=== PATIENT | female | born 1985 | race Caucasian/White ===

== ENCOUNTER → 2016-12-12 | Outpatient (CLI) | payer OTHER | LOC: BMCIMAGING 14:48 | PROVIDERS: ATTEND Emergency Medicine | DX: M25.571 Pain in right ankle and joints of right foot (principal); M79.89 Other specified soft tissue disorders ==

== ENCOUNTER → 2017-03-06 | Outpatient (CLI) | payer OTHER | LOC: FLAB 13:35 | PROVIDERS: ATTEND Obstetrics & Gynecology | DX: Z34.01 Encounter for supervision of normal first pregnancy, first trimester (principal); Z3A.12 12 weeks gestation of pregnancy ==

== ENCOUNTER → 2017-04-27 | Outpatient (CLI) | payer OTHER | LOC: FIMAGING 07:45 | PROVIDERS: ATTEND Obstetrics & Gynecology | DX: Z34.02 Encounter for supervision of normal first pregnancy, second trimester (principal); Z3A.19 19 weeks gestation of pregnancy ==

== ENCOUNTER 2017-09-23 13:10 | Inpatient (IN) | payer OTHER ==
[2017-09-23] MEDS ORDERED: OLIVE OIL 118 ML BTL MISC PRN (14:35)
[2017-09-23] MEDS ORDERED: OXYTOCIN 20 UNIT in LR 1,000 ML IV PRN (14:35)
[2017-09-23] MEDS ORDERED: LR 1,000 ML IV PRN (14:35)
[2017-09-23] MEDS ORDERED: EPSOM SALT 454 GM TP PRN (14:35)
[2017-09-23] MEDS ORDERED: TERBUTALINE SULFATE 1 MG/ML VIAL IV PRN (14:35)
--- NOTE | 2017-09-23 15:14 | PDGENHP ---
History and Physical History and Physical: HPI: Patient is a 32yo with IUP@ 40-5wks (by ) that presents to L&D with complaints of decreased movement x 2 days. She denies any regular contractions, LOF, VB. She denies any headaches, visual changes, epigastric pain. She reports minimal movement x2 days, which is abnormal for this . EDC: 09/18/17 which is based on LMP which is known and consistent with Ultrasound at 8 weeks. Her is complicated by: Rh Negative Review of Systems: Constitutional: Denies any fever, chills, or fatigue HEENT: denies any visual changes, difficulty swallowing, hearing loss Cardiovascular: Denies any chest pain, palpitations, leg swelling Respiratory: denies any cough, wheezing, or shortness of breathe GI: Denies any nausea, vomiting, diarrhea, constipation : denies any dysuria, urgency, frequency, vaginal bleeding Musculoskeletal: denies any muscle or bone pain Skin: denies any rashes Neuro: denies any headache, seizures, lightheadedness, dizziness, or loss of consciousness Psychiatric: denies any depression, anxiety, or SI/HI thoughts HISTORY: Previous OB history: G1 Past medical history: Rh Negative Past surgical history: none Medications: PNV, probiotic, rhogam Allergies (list reaction): NKDA LABS: Rh: B Negative ABS: Neg Rubella: Immune HbsAg: NR HIV: NR VDRL: NR 1hr: 105 GC: Neg Chlamydia: Neg Pap: Normal GBS: negative PHYSICAL EXAM: Constitutional: WN, A&Ox3 HEENT: normocephalic atraumatic, supple Heart: RRR, no murmur Chest: CTA-B Abdomen: Soft, nontender, gravid SVE: 1-2/50/-2 Extremities: trace edema, negative homans sign Neuro: grossly normal Psych: normal affect assessment: Reassuring FHTs, baseline 120 +accels, no decels, moderate variability Contractions: toco q 3-4min Assessment: [id number] with IUP@40-5wks 2) IOL 2/2 decreased FM 3) GBS Negative 4) Cat 1 FHR tracing 5) Rh Negative Plan: 1) Admit to L&D 2) leung bulb placed 3) expectant management at this time/IA ok until pitocin started 4) will consider pitocin if no contractions 5) pain management PRN 6) anticipate
[2017-09-23 15:41] LABS: PLATELET COUNT 186 10^3/uL (150-400)
[2017-09-23] MEDS ORDERED: LIDOCAINE 1% 300 MG/30 ML SDV ONE (15:42)
[2017-09-23] MEDS ORDERED: OLIVE OIL 118 ML BTL ONE (15:42)
[2017-09-23] MEDS ORDERED: OXYTOCIN 10 UNIT/ML VIAL ONE (15:43)
[2017-09-23] MEDS ORDERED: TERBUTALINE SULFATE 1 MG/ML VIAL ONE (15:43)
[2017-09-23] MEDS ORDERED: AMMONIA AROMATIC 1 EACH AMP IH ONE (15:43)
[2017-09-23] MEDS ORDERED: MISOPROSTOL 200 MCG TAB ONE (15:44)
[2017-09-23] MEDS ORDERED: CEPACOL LOZENGE PO PRN (16:04)
[2017-09-23] MEDS ORDERED: LR 500 ML IV PRN (20:42)
[2017-09-23] MEDS ORDERED: OXYTOCIN 30 UNIT in NS 500 ML IV SCH (20:45)
--- NOTE | 2017-09-24 07:23 | OBPROG ---
Labor Progress Note Assessment/Plan: Assessment: [id number] with IUP@ 40-6wks IOL 2/2 decreased FM pitocin started GBS Negative Rh Negative Plan: cont pitocin reassess 2hr/PRN pain management PRN AROM PRN anticipate 09/24/17 07:29 09/24/17 07:30 Subjective/Intrapartum Course: 09/24/17 07:27 Pt doing well, she reports sleeping throughout the night. She denies any pain with contractions. She denies any LOF. Reports bloody show. FOB @ BS, supportive. Objective: 09/23/17 15:20 Patient ABO/Rh B NEGATIVE 09/23/17 15:20 - SVE Dilation (cm): 3 Effacement (%): 50 Station: -2 - Contraction Pattern Assessment Current Contraction Pattern: Irregular Oxytocin Orders Assessment - Pre-Induction/Augmentation Assessment Gestational Age: 40 week(s) and 5 day(s) ICD10 Worksheet Patient Problems: Problems Problem Status Onset Decreased movement Acute Encounter for induction of labor Acute - ICD10 Problem Qualifiers (1) Decreased movement (2) Encounter for induction of labor
--- NOTE | 2017-09-24 09:29 | OBPROG ---
Labor Progress Note Assessment/Plan: Assessment: IUP at 40+ wks decreased mvmt - induction with leung yesterday - fell out early am, on pitocin now - disc AROM - pt agrees Plan: mec noted on AROM cont pitocin, nitrous and JAMIE when desired 09/24/17 09:25 Subjective/Intrapartum Course: 09/24/17 07:27 Pt doing well, she reports sleeping throughout the night. She denies any pain with contractions. She denies any LOF. Reports bloody show. FOB @ BS, supportive. 09/24/17 09:26 Pt starting to be aware of the ctxns, not bothersome. Disc AROM and pt ok with it to stimulate. Disc meconium - likely due to post-dates. on 10 pit Objective: 09/23/17 15:20 Patient ABO/Rh B NEGATIVE 09/23/17 15:20 - SVE Dilation (cm): 4 Effacement (%): 75 Station: -1 Membranes: AROM Amniotic Fluid Color: Thick Meconium - Contraction Pattern Assessment Current Contraction Pattern: Regular (q2-4 min on pitocin 10 mu/min), Irregular - FHR Assessment Gonzalez FHR (bpm): 120 FHR Pattern Variability: Moderate FHR Category: 1 - Procedures Non-surgical Procedures: Amniotomy Oxytocin Orders Assessment - Pre-Induction/Augmentation Assessment Gestational Age: 40 week(s) and 5 day(s) ICD10 Worksheet Patient Problems: Problems Problem Status Onset Decreased movement Acute Encounter for induction of labor Acute Meconium in amniotic fluid affecting management of mother Acute - ICD10 Problem Qualifiers (1) Meconium in amniotic fluid affecting management of mother
[2017-09-24 10:15] LABS: PLATELET COUNT 169 10^3/uL (150-400)
[2017-09-24] MEDS ORDERED: fentaNYL 100 MCG/2 ML INJ ONE (17:44)
[2017-09-24] MEDS ORDERED: BUPIVACAINE 0.25% 30 ML SDV ONE (17:44)
[2017-09-24] MEDS ORDERED: fentaNYL 2MCG/ML/BUP 0.1% RTU 100 ML BAG EP ONE (17:44)
[2017-09-24] MEDS ORDERED: PHENYLEPHRINE HCL 100 MCG/ML SYR IVP PRN (18:15)
--- NOTE | 2017-09-24 18:17 | PREANESOB ---
Obstetric Pre-Anesthesia Info - General Info : 1 Para: 0 KINDRA: 09/18/17 Gestational Age: 40 week(s) and 5 day(s) - Info Status: Full Term FHR Pattern: Reassuring - Labor Status Cervical Dilation per last OB SVE: 4 Station per last OB SVE: -1 Amniotic Fluid Color: Thick Meconium Pitocin: In Use Indications for Labor Analgesia: Pain Control Labor Epidural: Yes Anesthesia Allergies/Adverse Reactions: Allergy/AdvReac Type Severity Reaction Status Date / Time No Known Allergies Allergy Unverified 09/23/17 14:15 Home Medications: Medication Instructions Recorded L.acidoph,Paracasei, B.lactis 09/23/17 [Probiotic] Vit27&Calcium/Iron/FA 09/23/17 [] Visit Medications: Generic Name Dose Route Start Last Admin Trade Name Freq PRN Reason Stop Dose Admin Oxytocin 20 unit/ Lactated 1,002 mls @ 150 mls/hr 09/23/17 14:35 Ringer's IV PRN PRN Post- bleeding Lactated Ringer's 500 mls @ 500 mls/hr 09/23/17 20:42 Lr IV 09/24/17 20:42 PRN PRN Maternal Hypotension Oxytocin 30 unit/ Sodium 503 mls @ 0 mls/hr 09/23/17 20:45 09/24/17 06:35 Chloride IV 03/22/18 20:44 503 mls CONT AFIA Administration Protocol Per Protocol Ibuprofen 600 mg 09/23/17 14:35 Motrin PO 03/22/18 14:34 Q6HRS PRN post , inflammation Magnesium Sulfate 454 gm 09/23/17 14:35 Epsom Salt TP 03/22/18 14:34 Q1H PRN perineal discomfort [place] Oil 118 ml 09/23/17 14:35 Sweet Oil MISC 03/22/18 14:34 ONCE PRN perineal massage Terbutaline Sulfate 0.25 mg 09/23/17 14:35 Brethine IV 03/22/18 14:34 ONCE PRN Tachysystole Throat Lozenges 1 ea 09/23/17 16:04 Cepacol Lozenge PO 03/22/18 16:03 PRN PRN Sore Throat Discontinued Medications Generic Name Dose Route Start Last Admin Trade Name Freq PRN Reason Stop Dose Admin Ammonia (Aromatic Spirit) Confirm 09/23/17 15:43 Ammonia Aromatic Administered 09/23/17 15:44 Dose 1 each IH .STK-MED ONE Bupivacaine HCl Confirm 09/24/17 17:44 Sensorcaine 0.25% Sdv Administered 09/24/17 17:45 Dose 30 ml .ROUTE .STK-MED ONE Fentanyl Confirm 09/24/17 17:44 Sublimaze Administered 09/24/17 17:45 Dose 100 mcg .ROUTE .STK-MED ONE Fentanyl/Bupivacaine HCl Confirm 09/24/17 17:44 Fentanyl/Bupivacaine/Ns 2 Mcg/Ml 0.1% (Premix Administered 09/24/17 17:45 Dose 100 ml EP .STK-MED ONE Lactated Ringer's 1,000 mls @ 0 mls/hr 09/23/17 14:35 09/24/17 06:35 Lr IV 09/24/17 14:34 1,000 mls PRN PRN Administration SEE PROTOCOL CONDITIONS Protocol Per Protocol Lidocaine HCl Confirm 09/23/17 15:42 Lidocaine Hcl 1% Administered 09/23/17 15:43 Dose 300 mg .ROUTE .STK-MED ONE Misoprostol Confirm 09/23/17 15:44 Cytotec Administered 09/23/17 15:45 Dose 1,000 mcg .ROUTE .STK-MED ONE [place] Oil Confirm 09/23/17 15:42 Sweet Oil Administered 09/23/17 15:43 Dose 118 ml .ROUTE .STK-MED ONE Oxytocin Confirm 09/23/17 15:43 Pitocin Administered 09/23/17 15:44 Dose 40 unit .ROUTE .STK-MED ONE Terbutaline Sulfate Confirm 09/23/17 15:43 Brethine Administered 09/23/17 15:44 Dose 1 mg .ROUTE .STK-MED ONE - Vital Signs Height/Weight (Nursing): Height 162.56 cm Weight 77.111 kg Labs: 09/24/17 09:45 09/24/17 09:45 Patient ABO/Rh B NEGATIVE 09/23/17 15:20 Uric Acid 5.4 mg/dL (2.5-6.8) 09/24/17 09:45 Total Bilirubin 0.5 mg/dL (0.1-1.4) 09/24/17 09:45 Conjugated Bilirubin 0.2 mg/dL (0.0-0.5) 09/24/17 09:45 Unconjugated Bilirubin 0.3 mg/dL (0.0-1.1) 09/24/17 09:45 AST 23 IU/L (14-46) 09/24/17 09:45 ALT 26 IU/L (9-52) 09/24/17 09:45 Lactate Dehydrogenase 428 IU/L (313-618) 09/24/17 09:45
[2017-09-24] MEDS ORDERED: fentaNYL 2MCG/ML/BUP 0.1% RTU 100 ML EP SCH (18:30)
[2017-09-24] MEDS ORDERED: LR 500 ML IV SCH (18:30)
--- NOTE | 2017-09-24 19:59 | OBPROG ---
Labor Progress Note Assessment/Plan: Assessment: IUP at 40+ wks decreased mvmt - induction with leung yesterday - fell out early am, on pitocin now - rom - THICK MEC lack of cervical change - IUPC placed comf with JAMIE Plan: IUPC and cont to adjust pit 09/24/17 09:25 09/24/17 19:56 Subjective/Intrapartum Course: 09/24/17 07:27 Pt doing well, she reports sleeping throughout the night. She denies any pain with contractions. She denies any LOF. Reports bloody show. FOB @ BS, supportive. 09/24/17 09:26 Pt starting to be aware of the ctxns, not bothersome. Disc AROM and pt ok with it to stimulate. Disc meconium - likely due to post-dates. on 10 pit 09/24/17 19:57 Comf with JAMIE, on 16 pit for hours, unchanged cx 4/75/-1, IUPC placed easily - feels OA Objective: 09/24/17 09:45 09/24/17 09:45 Patient ABO/Rh B NEGATIVE 09/23/17 15:20 Uric Acid 5.4 mg/dL (2.5-6.8) 09/24/17 09:45 Total Bilirubin 0.5 mg/dL (0.1-1.4) 09/24/17 09:45 Conjugated Bilirubin 0.2 mg/dL (0.0-0.5) 09/24/17 09:45 Unconjugated Bilirubin 0.3 mg/dL (0.0-1.1) 09/24/17 09:45 AST 23 IU/L (14-46) 09/24/17 09:45 ALT 26 IU/L (9-52) 09/24/17 09:45 Lactate Dehydrogenase 428 IU/L (313-618) 09/24/17 09:45 - SVE Dilation (cm): 4 Effacement (%): 75 Station: -1 Membranes: AROM Amniotic Fluid Color: Thick Meconium - Contraction Pattern Assessment Current Contraction Pattern: Regular (on 16 mu/min, q2 min - IUPC placed) - FHR Assessment Gonzalez FHR (bpm): 140 FHR Pattern Variability: Moderate FHR Category: 1 - Procedures Non-surgical Procedures: Amniotomy Oxytocin Orders Assessment - Pre-Induction/Augmentation Assessment Gestational Age: 40 week(s) and 5 day(s) ICD10 Worksheet Patient Problems: Problems Problem Status Onset Decreased movement Acute Encounter for induction of labor Acute Meconium in amniotic fluid affecting management of mother Acute - ICD10 Problem Qualifiers (1) Meconium in amniotic fluid affecting management of mother
[2017-09-25] MEDS ORDERED: ACETAMINOPHEN 500 MG TAB PO ONE ×2 (02:14→09:46)
--- NOTE | 2017-09-25 05:05 | OBPROG ---
Labor Progress Note Assessment/Plan: Assessment: IUP at 40+ wks decreased mvmt - induction with leung yesterday - fell out early am, on pitocin now - rom - THICK MEC Has been 8 cm for hrs - current change to 9 cm often borderline pain with JAMIE Plan: cont to adjust pit due to high freq - often inadeq strength....on 22 - just dropped to 15 of pit and increasing again 09/24/17 09:25 09/24/17 19:56 09/25/17 05:01 Subjective/Intrapartum Course: 09/24/17 07:27 Pt doing well, she reports sleeping throughout the night. She denies any pain with contractions. She denies any LOF. Reports bloody show. FOB @ BS, supportive. 09/24/17 09:26 Pt starting to be aware of the ctxns, not bothersome. Disc AROM and pt ok with it to stimulate. Disc meconium - likely due to post-dates. on 10 pit 09/24/17 19:57 Comf with JAMIE, on 16 pit for hours, unchanged cx 4/75/-1, IUPC placed easily - feels OA 09/25/17 05:02 pt has had background pain through a lot of the night - boluses help somewhat. progressed last evening to 8 cm but then no change at 3:30 am per RN. This check, cx is 9cm. Disc trouble with the ctxn pattern of being freq but inadeq strength. Will check again in 1 hour, Objective: 09/24/17 09:45 09/24/17 09:45 Patient ABO/Rh B NEGATIVE 09/23/17 15:20 Uric Acid 5.4 mg/dL (2.5-6.8) 09/24/17 09:45 Total Bilirubin 0.5 mg/dL (0.1-1.4) 09/24/17 09:45 Conjugated Bilirubin 0.2 mg/dL (0.0-0.5) 09/24/17 09:45 Unconjugated Bilirubin 0.3 mg/dL (0.0-1.1) 09/24/17 09:45 AST 23 IU/L (14-46) 09/24/17 09:45 ALT 26 IU/L (9-52) 09/24/17 09:45 Lactate Dehydrogenase 428 IU/L (313-618) 09/24/17 09:45 - SVE Dilation (cm): 9 Effacement (%): 90 Station: 0 Membranes: AROM Amniotic Fluid Color: Thick Meconium - Contraction Pattern Assessment Current Contraction Pattern: Regular (on 16 mu/min, q2 min - IUPC placed), Tachysystole (often q 2 min but inadeq strength, episodes of adeq but inconsistent) - FHR Assessment Gonzalez FHR (bpm): 140 FHR Pattern Variability: Moderate FHR Category: 1 - Procedures Non-surgical Procedures: Amniotomy Oxytocin Orders Assessment - Pre-Induction/Augmentation Assessment Gestational Age: 40 week(s) and 5 day(s) ICD10 Worksheet Patient Problems: Problems Problem Status Onset Decreased movement Acute Encounter for induction of labor Acute Meconium in amniotic fluid affecting management of mother Acute - ICD10 Problem Qualifiers (1) Meconium in amniotic fluid affecting management of mother
[2017-09-25] MEDS ORDERED: BUPIVACAINE 0.25% 30 ML SDV ONE (05:52)
--- NOTE | 2017-09-25 06:28 | OBPROG ---
Labor Progress Note Assessment/Plan: Assessment: IUP at 40+ wks decreased mvmt - induction with leung yesterday - fell out early am, on pitocin now - rom - THICK MEC - at 9:11 on 09/25 No cervical change in last hour - discussed lack of ability to get adequate pattern often borderline pain with JAMIE - currently comfortable with recent bolus Plan: cont to adjust pit due to high freq - often inadeq strength....back up to 21 pit but inadeq 09/24/17 09:25 09/24/17 19:56 09/25/17 05:01 09/25/17 06:25 Subjective/Intrapartum Course: 09/24/17 07:27 Pt doing well, she reports sleeping throughout the night. She denies any pain with contractions. She denies any LOF. Reports bloody show. FOB @ BS, supportive. 09/24/17 09:26 Pt starting to be aware of the ctxns, not bothersome. Disc AROM and pt ok with it to stimulate. Disc meconium - likely due to post-dates. on 10 pit 09/24/17 19:57 Comf with JAMIE, on 16 pit for hours, unchanged cx 4/75/-1, IUPC placed easily - feels OA 09/25/17 05:02 pt has had background pain through a lot of the night - boluses help somewhat. progressed last evening to 8 cm but then no change at 3:30 am per RN. This check, cx is 9cm. Disc trouble with the ctxn pattern of being freq but inadeq strength. Will check again in 1 hour, 09/25/17 06:28 pt frustrated that cx unchanged at 9 cm, but wants to give it one more hour with position change Objective: 09/24/17 09:45 09/24/17 09:45 Patient ABO/Rh B NEGATIVE 09/23/17 15:20 Uric Acid 5.4 mg/dL (2.5-6.8) 09/24/17 09:45 Total Bilirubin 0.5 mg/dL (0.1-1.4) 09/24/17 09:45 Conjugated Bilirubin 0.2 mg/dL (0.0-0.5) 09/24/17 09:45 Unconjugated Bilirubin 0.3 mg/dL (0.0-1.1) 09/24/17 09:45 AST 23 IU/L (14-46) 09/24/17 09:45 ALT 26 IU/L (9-52) 09/24/17 09:45 Lactate Dehydrogenase 428 IU/L (313-618) 09/24/17 09:45 - SVE Dilation (cm): 9 Effacement (%): 80 Station: -1 Membranes: AROM Amniotic Fluid Color: Thick Meconium - Contraction Pattern Assessment Current Contraction Pattern: Regular (on 21 mu/min pit, q 2-3 min, MVUs inadeq) - FHR Assessment Gonzalez FHR (bpm): 140 FHR Pattern Variability: Moderate FHR Category: 1 - Procedures Non-surgical Procedures: Amniotomy Oxytocin Orders Assessment - Pre-Induction/Augmentation Assessment Gestational Age: 40 week(s) and 5 day(s) ICD10 Worksheet Patient Problems: Problems Problem Status Onset Decreased movement Acute Encounter for induction of labor Acute Meconium in amniotic fluid affecting management of mother Acute - ICD10 Problem Qualifiers (1) Meconium in amniotic fluid affecting management of mother
[2017-09-25] MEDS ORDERED: ONDANSETRON 4 MG/2 ML VIAL IVP PRN (06:59)
[2017-09-25] MEDS ORDERED: ONDANSETRON 4 MG/2 ML VIAL ONE ×2 (07:01→12:42)
--- NOTE | 2017-09-25 08:04 | OBPROG ---
Labor Progress Note Assessment/Plan: Assessment:cat2 fhr scalp stim + raising of the heartrate exam 9-10 com caput and molding noted fhr baseline rising thick meconium per previous provider discussed r/b/a aware a possibilitiy Plan:continuing, expectant management 09/25/17 08:01 Subjective/Intrapartum Course: 09/24/17 07:27 Pt doing well, she reports sleeping throughout the night. She denies any pain with contractions. She denies any LOF. Reports bloody show. FOB @ BS, supportive. 09/24/17 09:26 Pt starting to be aware of the ctxns, not bothersome. Disc AROM and pt ok with it to stimulate. Disc meconium - likely due to post-dates. on 10 pit 09/24/17 19:57 Comf with JAMIE, on 16 pit for hours, unchanged cx 4/75/-1, IUPC placed easily - feels OA 09/25/17 05:02 pt has had background pain through a lot of the night - boluses help somewhat. progressed last evening to 8 cm but then no change at 3:30 am per RN. This check, cx is 9cm. Disc trouble with the ctxn pattern of being freq but inadeq strength. Will check again in 1 hour, 09/25/17 06:28 pt frustrated that cx unchanged at 9 cm, but wants to give it one more hour with position change 09/25/17 07:59 Would like to continue. (-10 cm cervix gone on the right side will rotate again. Bloody urine noted. Increasing pitocin to assist with strength of contractions. Contractions inadequete. Caput and molding noted Objective: 09/24/17 09:45 09/24/17 09:45 Patient ABO/Rh B NEGATIVE 09/23/17 15:20 Uric Acid 5.4 mg/dL (2.5-6.8) 09/24/17 09:45 Total Bilirubin 0.5 mg/dL (0.1-1.4) 09/24/17 09:45 Conjugated Bilirubin 0.2 mg/dL (0.0-0.5) 09/24/17 09:45 Unconjugated Bilirubin 0.3 mg/dL (0.0-1.1) 09/24/17 09:45 AST 23 IU/L (14-46) 09/24/17 09:45 ALT 26 IU/L (9-52) 09/24/17 09:45 Lactate Dehydrogenase 428 IU/L (313-618) 09/24/17 09:45 - SVE Dilation (cm): 9, 10 Effacement (%): 90 Station: -1 Membranes: AROM Amniotic Fluid Color: Thick Meconium - Contraction Pattern Assessment Current Contraction Pattern: Regular (on 21 mu/min pit, q 2-3 min, MVUs inadeq) - FHR Assessment Gonzalez FHR (bpm): 160 FHR Pattern Variability: Moderate FHR Category: 2 - Procedures Non-surgical Procedures: Amniotomy Oxytocin Orders Assessment - Pre-Induction/Augmentation Assessment Gestational Age: 40 week(s) and 5 day(s) ICD10 Worksheet Patient Problems: Problems Problem Status Onset Decreased movement Acute Encounter for induction of labor Acute Meconium in amniotic fluid affecting management of mother Acute
--- NOTE | 2017-09-25 09:24 | OBPROG ---
Labor Progress Note Assessment/Plan: Assessment:cat2 fhr exam 10/100/0 fhr baseline rising moderate variability thick meconium per previous provider pushing with contractions to assist with the descent of the head Plan:continuing pitocin, pushing 09/25/17 08:01 09/25/17 09:23 Subjective/Intrapartum Course: 09/24/17 07:27 Pt doing well, she reports sleeping throughout the night. She denies any pain with contractions. She denies any LOF. Reports bloody show. FOB @ BS, supportive. 09/24/17 09:26 Pt starting to be aware of the ctxns, not bothersome. Disc AROM and pt ok with it to stimulate. Disc meconium - likely due to post-dates. on 10 pit 09/24/17 19:57 Comf with JAMIE, on 16 pit for hours, unchanged cx 4/75/-1, IUPC placed easily - feels OA 09/25/17 05:02 pt has had background pain through a lot of the night - boluses help somewhat. progressed last evening to 8 cm but then no change at 3:30 am per RN. This check, cx is 9cm. Disc trouble with the ctxn pattern of being freq but inadeq strength. Will check again in 1 hour, 09/25/17 06:28 pt frustrated that cx unchanged at 9 cm, but wants to give it one more hour with position change 09/25/17 07:59 Would like to continue. (-10 cm cervix gone on the right side will rotate again. Bloody urine noted. Increasing pitocin to assist with strength of contractions. Contractions inadequete. Caput and molding noted 09/25/17 09:22 Pushing with the contractions feeling greater pressure vaginally before the vaginal exam Objective: 09/24/17 09:45 09/24/17 09:45 Patient ABO/Rh B NEGATIVE 09/23/17 15:20 Uric Acid 5.4 mg/dL (2.5-6.8) 09/24/17 09:45 Total Bilirubin 0.5 mg/dL (0.1-1.4) 09/24/17 09:45 Conjugated Bilirubin 0.2 mg/dL (0.0-0.5) 09/24/17 09:45 Unconjugated Bilirubin 0.3 mg/dL (0.0-1.1) 09/24/17 09:45 AST 23 IU/L (14-46) 09/24/17 09:45 ALT 26 IU/L (9-52) 09/24/17 09:45 Lactate Dehydrogenase 428 IU/L (313-618) 09/24/17 09:45 - SVE Dilation (cm): 10 Effacement (%): 100 Station: 0 Membranes: AROM Amniotic Fluid Color: Thick Meconium - Contraction Pattern Assessment Current Contraction Pattern: Regular (on 21 mu/min pit, q 2-3 min, MVUs inadeq) - FHR Assessment Gonzalez FHR (bpm): 160 FHR Pattern Variability: Moderate FHR Category: 2 - Procedures Non-surgical Procedures: Amniotomy Oxytocin Orders Assessment - Pre-Induction/Augmentation Assessment Gestational Age: 40 week(s) and 5 day(s) ICD10 Worksheet Patient Problems: Problems Problem Status Onset Decreased movement Acute Encounter for induction of labor Acute Meconium in amniotic fluid affecting management of mother Acute
--- NOTE | 2017-09-25 10:10 | OBPROG ---
Labor Progress Note Assessment/Plan: Assessment:cat2 fhr exam 10/100/+1 fhr baseline rising moderate variability thick meconium per previous provider 38.2 temp tylenol given 1gm consult dr. cherry for POC Plan:continuing pitocin, pushing 09/25/17 08:01 09/25/17 09:23 09/25/17 10:04 Subjective/Intrapartum Course: 09/24/17 07:27 Pt doing well, she reports sleeping throughout the night. She denies any pain with contractions. She denies any LOF. Reports bloody show. FOB @ BS, supportive. 09/24/17 09:26 Pt starting to be aware of the ctxns, not bothersome. Disc AROM and pt ok with it to stimulate. Disc meconium - likely due to post-dates. on 10 pit 09/24/17 19:57 Comf with JAMIE, on 16 pit for hours, unchanged cx 4/75/-1, IUPC placed easily - feels OA 09/25/17 05:02 pt has had background pain through a lot of the night - boluses help somewhat. progressed last evening to 8 cm but then no change at 3:30 am per RN. This check, cx is 9cm. Disc trouble with the ctxn pattern of being freq but inadeq strength. Will check again in 1 hour, 09/25/17 06:28 pt frustrated that cx unchanged at 9 cm, but wants to give it one more hour with position change 09/25/17 07:59 Would like to continue. (-10 cm cervix gone on the right side will rotate again. Bloody urine noted. Increasing pitocin to assist with strength of contractions. Contractions inadequete. Caput and molding noted 09/25/17 09:22 Pushing with the contractions feeling greater pressure vaginally before the vaginal exam 09/25/17 10:03 Feeling pressure with pushing and inbetween contractions. Will allow for laboring down x 1/2 hour Objective: 09/24/17 09:45 09/24/17 09:45 Patient ABO/Rh B NEGATIVE 09/23/17 15:20 Uric Acid 5.4 mg/dL (2.5-6.8) 09/24/17 09:45 Total Bilirubin 0.5 mg/dL (0.1-1.4) 09/24/17 09:45 Conjugated Bilirubin 0.2 mg/dL (0.0-0.5) 09/24/17 09:45 Unconjugated Bilirubin 0.3 mg/dL (0.0-1.1) 09/24/17 09:45 AST 23 IU/L (14-46) 09/24/17 09:45 ALT 26 IU/L (9-52) 09/24/17 09:45 Lactate Dehydrogenase 428 IU/L (313-618) 09/24/17 09:45 - SVE Membranes: AROM Amniotic Fluid Color: Thick Meconium - Contraction Pattern Assessment Current Contraction Pattern: Regular (on 21 mu/min pit, q 2-3 min, MVUs inadeq) - FHR Assessment Gonzalez FHR (bpm): 170 FHR Pattern Variability: Moderate FHR Category: 2 - Procedures Non-surgical Procedures: Amniotomy Oxytocin Orders Assessment - Pre-Induction/Augmentation Assessment Gestational Age: 40 week(s) and 5 day(s) ICD10 Worksheet Patient Problems: Problems Problem Status Onset Decreased movement Acute Encounter for induction of labor Acute Meconium in amniotic fluid affecting management of mother Acute
[2017-09-25] MEDS ORDERED: LIDO/EPI 2% **for epidural** 20 ML SDV ONE ×2 (11:06→11:48)
[2017-09-25] MEDS ORDERED: fentaNYL 100 MCG/2 ML INJ ONE ×2 (11:07→11:52)
[2017-09-25] MEDS ORDERED: AMPICILLIN SODIUM 1 GM VIAL ONE (11:11)
[2017-09-25] MEDS ORDERED: LR 500 ML IV ONE (11:12)
[2017-09-25] MEDS ORDERED: AMPICILLIN SODIUM 2 GM in NS 100 ML IV STA (11:15)
[2017-09-25] MEDS ORDERED: GENTAMICIN SULFATE 360 MG in D5W 100 ML IV STA (11:16)
[2017-09-25] MEDS ORDERED: CLINDAMYCIN 900 MG/DEXTROSE 50 ML IV STA (11:18)
[2017-09-25] MEDS ORDERED: CLINDAMYCIN 900 MG/DEXTROSE/50 ML BAG IV ONE (11:25)
[2017-09-25] MEDS ORDERED: LR 1,000 ML IV SCH (11:30)
[2017-09-25] MEDS ORDERED: OXYTOCIN 100 UNITS/10 ML VIAL ONE (11:39)
[2017-09-25] MEDS ORDERED: DEXAMETHASONE 4 MG/ML VIAL ONE ×2 (11:40)
[2017-09-25] MEDS ORDERED: PROPOFOL 200 MG/20 ML VIAL ONE (11:53)
[2017-09-25] MEDS ORDERED: HEMABATE 250 MCG/1 ML AMP IM ONE ×2 (11:59→12:02)
[2017-09-25] MEDS ORDERED: METHYLERGONOVINE MAL 0.2 MG/ML INJ IM ONE (12:02)
[2017-09-25] MEDS ORDERED: morphINE PF 5 MG/10 ML INJ ONE (12:04)
[2017-09-25] MEDS ORDERED: KETOROLAC 30 MG/1 ML SDV ONE (12:47)
[2017-09-25] MEDS ORDERED: NALOXONE HCL 0.4 MG/ML INJ IVP PRN (13:12)
[2017-09-25] MEDS ORDERED: HYDROmorphONE/DILAUDID 1 MG/ML INJ IVP PRN (13:12)
--- NOTE | 2017-09-25 13:21 | OBDEL ---
Info Type: Primary Presentation at Delivery: Vertex L&D Analgesia/Anesthesia Type: Epidural GBS+: No Intrapartum Medications: Generic Name Dose Route Start Last Admin Trade Name Freq PRN Reason Stop Dose Admin Oxytocin 30 unit/ Sodium 503 mls @ 0 mls/hr 09/23/17 20:45 09/24/17 06:35 Chloride IV 03/22/18 20:44 503 mls CONT AFIA Administration Protocol Per Protocol Ondansetron HCl 4 mg 09/25/17 06:59 09/25/17 07:00 Zofran IVP 03/24/18 06:58 4 mg Q4HRS PRN Administration Nausea/Vomiting, Can't Take PO Discontinued Medications Generic Name Dose Route Start Last Admin Trade Name Freq PRN Reason Stop Dose Admin Acetaminophen 1,000 mg 09/25/17 02:14 09/25/17 02:17 Tylenol PO 09/25/17 02:15 1,000 mg ONCE ONE Administration Acetaminophen 1,000 mg 09/25/17 09:46 09/25/17 10:02 Tylenol PO 09/25/17 09:47 1,000 mg ONCE ONE Administration Lactated Ringer's 1,000 mls @ 0 mls/hr 09/23/17 14:35 09/24/17 06:35 Lr IV 09/24/17 14:34 1,000 mls PRN PRN Administration SEE PROTOCOL CONDITIONS Protocol Per Protocol She did recieve Amp/Gent/Clinda prior to skin incisions for new diagnosis of chorioamnionitis. - Hospital Course Intrapartum: 09/24/17 07:27 Pt doing well, she reports sleeping throughout the night. She denies any pain with contractions. She denies any LOF. Reports bloody show. FOB @ BS, supportive. 09/24/17 09:26 Pt starting to be aware of the ctxns, not bothersome. Disc AROM and pt ok with it to stimulate. Disc meconium - likely due to post-dates. on 10 pit 09/24/17 19:57 Comf with JAMIE, on 16 pit for hours, unchanged cx 4/75/-1, IUPC placed easily - feels OA 09/25/17 05:02 pt has had background pain through a lot of the night - boluses help somewhat. progressed last evening to 8 cm but then no change at 3:30 am per RN. This check, cx is 9cm. Disc trouble with the ctxn pattern of being freq but inadeq strength. Will check again in 1 hour, 09/25/17 06:28 pt frustrated that cx unchanged at 9 cm, but wants to give it one more hour with position change 09/25/17 07:59 Would like to continue. (-10 cm cervix gone on the right side will rotate again. Bloody urine noted. Increasing pitocin to assist with strength of contractions. Contractions inadequete. Caput and molding noted 09/25/17 09:22 Pushing with the contractions feeling greater pressure vaginally before the vaginal exam 09/25/17 10:03 Feeling pressure with pushing and inbetween contractions. Will allow for laboring down x 1/2 hour Indications for Delivery: Postterm Unfavorable Cervix (40w5d - IOL for post-dates/decreased movement) Vaginal Delivery - Labor and Delivery Amniotic Fluid Color: Thick Meconium Non-surgical Procedures: Amniotomy Cord Gases: Cord Gases Cord Blood PCO2 55.1 mmHg (37-60) 09/25/17 11:55 Cord Base Excess -10.3 mEq/L (-13.6--3.2) 09/25/17 11:55 Cord ABG pH 7.17 (7.10-7.37) 09/25/17 11:55 Cord VBG pH 7.25 (7.20-7.42) 09/25/17 11:55 Operative Report - Delivery Pre-op Diagnoses: Arrest of descent, Chorioamnionitis Post-op Diagnoses: Same, Direct OA History of Prior Section: No Nulliparous Prior to Delivery: Yes Indications for Current Section: Arrest of Descent Procedure: Unscheduled Surgeon: Dread Ko Prison Warden: Carlie Saleh Complications: Post Hemorrhage (EBL 1000cc) Findings: Normal tubes and ovaries bilaterally. Normal uterus, blood-tinged urine prior to starting case. Thick meconium-stained fluid. Specimen(s)/Path: Placenta EBL: 1000cc Cord Gases: Cord Gases Cord Blood PCO2 55.1 mmHg (37-60) 09/25/17 11:55 Cord Base Excess -10.3 mEq/L (-13.6--3.2) 09/25/17 11:55 Cord ABG pH 7.17 (7.10-7.37) 09/25/17 11:55 Cord VBG pH 7.25 (7.20-7.42) 09/25/17 11:55 [place] Data KINDRA: 09/18/17 Gestational Age: 41 week(s) and 0 day(s) Gonzalez Delivery Date: 09/25/17 Delivery Time: 11:50 Sex of : Female Score (1 Min): 8 Score (5 Min): 9 ICD10 Worksheet Patient Problems: Problems Problem Status Onset Decreased movement Acute Encounter for induction of labor Acute Meconium in amniotic fluid affecting management of mother Acute
--- NOTE | 2017-09-25 13:22 | POSTANESTH ---
Post Anesthetic Evaluation Cardiovascular Status: Normal, Stable, Similar to Pre-Op Cond Respiratory Status: Normal, Stable, Similar to Pre-op Cond. Level of Consciousness/Mental Status: Can Participate in Eval, Alert and Oriented (Epidural dosed for C Section, to OR, epidural supplemented with IV meds after delivery, to PACU, minimal discomfort, no nausea.) Pain Control: Adequate, Prn Tx Ordered Nausea/Vomiting Control: Adequate, Prn Tx Ordered Complications Possibly Related to Anesthesia: None Noted
--- NOTE | 2017-09-25 13:28 | SUROPNOTE ---
[facility] Operative Report - Surgery Operative Report Date: 09/25/17 Surgeon: Dread Ko MD Assist: Kelsey Saleh CNM Procedure: PLTCS Preop Dx: Post-dates IOL, Arrest of descent, Failed VAVD, Chorioamnionitis Postop Dx: Same EBL: 1000cc Complication: None Findings: Normal appearance of uterus, normal tubes and ovaries bilaterally. Thick meconium-stained fluid. Specimens: Placenta to path, cord blood gasses Technique: The patient was taken to the OR where epidural was dosed and the patient then positioned supine with a leftward tilt. A time-out was performed. The abdomen was prepped and draped in normal sterile fashion. A Pfannensteil incision was made with the scalpel and carried down to the fascia. The fascia was incised in the midline and the incision extended bilaterally sharply with scissors. The fascia was dissected off of the underlying rectus muscles also using scissors. The rectus were in the midline and the peritoneum identified bluntly without issue. The peritoneal incision was extended and the bladder blade was then placed. The vesicouterine junction was identified and a bladder flap created sharply and developed bluntly. A transverse incision was made with the scalpel in the lower uterine segment and extended with cephalad and caudad traction on the incision edges. Thick meconium encountered immediately (this had been identified earlier in labor). The head was elevated out of the pelvis within 10 seconds, but head was engaged deeply in the pelvis, and this took some consistent gentle traction cephalad - eventually delivered atraumatically, followed by the body. The nose and mouth were bulb suctioned, we did not wait for 60 seconds before clamping and cutting the cord due to concern for meconium - cord cut and was handed to pediatric staff. Cord blood gasses were sent and the placenta was sent to pathology. The uterus was then exteriorized and wiped of all debris. We did have issues with uterine tone and bleeding during closure - she was given IV Pitocin as well as a single dose of Methergine IM and then we had nice tone the rest of the case. The uterus was closed in two layers. The first layer used a running, locked 0-vloc followed by a second imbircating layer using 0-vicryl. The gutters were cleared of all clots. The uterine incision was reinspected and found to be hemostatic after placement of 3 additional figure of eight sutures and Marlo hemostatic powder. The uterus was then returned to the abdomen. Rectus bellies reapproximated in the midline with 3 interrupted sutures of 0- chromic. The fascia was elevated and the rectus muscles and subcutaneous tissues were found to be hemostatic. The fascia was closed with a running 0- Vicryl - single suture. The subcutaneous tissues were irrigated and hemostasis obtained. The subcutaneous space was closed with interrupted sutures of 2-0 vicryl. The skin was closed with 4-0 vloc undyed. The patient tolerated the procedure and was taken to recovery in stable condition. Lap, needle, sponge, and instrument count were announced as correct times two. I was present and scrubbed for the entire case.
[2017-09-25] MEDS ORDERED: SIMETHICONE 80 MG TAB CHEW PO PRN (13:29)
[2017-09-25] MEDS ORDERED: ACETAMINOPHEN 325 MG TAB PO PRN (13:29)
[2017-09-25] MEDS ORDERED: DOCUSATE SODIUM 100 MG CAP PO PRN (13:29)
[2017-09-25] MEDS ORDERED: POLYETHYLENE GLYCOL 3350 17 GM PKT PO PRN (14:09)
[2017-09-25] MEDS ORDERED: MAGNESIUM HYDROXIDE 30 ML UDCUP PO PRN (14:09)
[2017-09-25] MEDS ORDERED: BISACODYL 10 MG SUPP PR PRN (14:09)
[2017-09-25] MEDS ORDERED: LACTULOSE 20 GM/30 ML UDCUP PO PRN (14:09)
[2017-09-25] MEDS ORDERED: KETOROLAC 30 MG/1 ML SDV IVP SCH (18:00)
[2017-09-25] MEDS: KETOROLAC 30 MG/1 ML SDV IVP SCH (19:55)
[2017-09-25] MEDS: SENNOSIDES/DOCUSATE SODIUM TAB PO SCH (19:56)
[2017-09-26] MEDS: KETOROLAC 30 MG/1 ML SDV IVP SCH ×2 (01:21→08:57)
--- NOTE | 2017-09-26 10:10 | OBPP ---
Progress Note Assessment/Plan: Assessment: 32 y/o POD #1 s/p LTCS secondary to arrest of descent, failed vacuum and chorioamnionitis Plan: Gr d/c and she is ambulating with assistance. Iron started QD, advance to reg diet and po pain meds. support and routine POC. 09/26/17 10:09 Subjective/ Course: 09/26/17 10:06 Pt is doing well this am. She has good pain control with Toradol. She had a good breakfast and is tolerating reg diet. She is working on breast feeding and baby ate well this am. Objective: 09/26/17 01:30 09/24/17 09:45 Patient ABO/Rh B NEGATIVE 09/25/17 14:30 Uric Acid 5.4 mg/dL (2.5-6.8) 09/24/17 09:45 Total Bilirubin 0.5 mg/dL (0.1-1.4) 09/24/17 09:45 Conjugated Bilirubin 0.2 mg/dL (0.0-0.5) 09/24/17 09:45 Unconjugated Bilirubin 0.3 mg/dL (0.0-1.1) 09/24/17 09:45 AST 23 IU/L (14-46) 09/24/17 09:45 ALT 26 IU/L (9-52) 09/24/17 09:45 Lactate Dehydrogenase 428 IU/L (313-618) 09/24/17 09:45 Temp Pulse Resp BP Pulse Ox 36.1 C 78 16 105/62 92 09/26/17 04:37 09/26/17 04:37 09/26/17 04:37 09/26/17 04:37 09/26/17 06:30 Uterine Position/Fundal Height: Umbilicus -2 Uterine Tone: Firm Physical Exam - Physical Exam Neck: non-tender, full range of motion, supple Respiratory: chest non-tender, lungs clear, normal breath sounds Cardiac/Chest: regular rate, rhythm Abdomen: normal bowel sounds, incision (c/d/i) Extremities: swelling (no), Lisa's sign (neg)
[2017-09-26] MEDS: IRON POLYSAC/IRON HEME 28 MG TAB PO SCH (12:03)
[2017-09-26] MEDS: HYDROCODONE/APAP 5/325 TAB PO PRN ×2 (12:12→16:03)
[2017-09-26] MEDS: IBUPROFEN 600 MG TAB PO PRN ×2 (15:59→22:40)
[2017-09-26] MEDS: SENNOSIDES/DOCUSATE SODIUM TAB PO SCH ×2 (18:15→20:49)
[2017-09-27] MEDS: HYDROCODONE/APAP 5/325 TAB PO PRN ×4 (01:08→21:16)
[2017-09-27] MEDS: IBUPROFEN 600 MG TAB PO PRN ×3 (05:32→18:58)
[2017-09-27] MEDS: SENNOSIDES/DOCUSATE SODIUM TAB PO SCH ×2 (10:30→21:16)
[2017-09-27] MEDS: IRON POLYSAC/IRON HEME 28 MG TAB PO SCH (10:30)
--- NOTE | 2017-09-27 12:25 | OBPP ---
Progress Note Assessment/Plan: Assessment: POD 2 s/p primary C/S chorio - no fevers since delivery anemia on iron Plan: routine care, iron daily 09/24/17 09:25 09/24/17 19:56 09/25/17 05:01 09/25/17 06:25 09/27/17 12:21 Subjective/ Course: 09/26/17 10:06 Pt is doing well this am. She has good pain control with Toradol. She had a good breakfast and is tolerating reg diet. She is working on breast feeding and baby ate well this am. 09/27/17 12:22 Pt doing ok - no BM yet. urinating fine. bld is light. baby is latching well but stays attached for a while. amb well and no [place] in 12 hours and looks great but is reporting pain and wants dose now. anxious about constipating effect Objective: 09/26/17 01:30 09/24/17 09:45 Patient ABO/Rh B NEGATIVE 09/25/17 14:30 Uric Acid 5.4 mg/dL (2.5-6.8) 09/24/17 09:45 Total Bilirubin 0.5 mg/dL (0.1-1.4) 09/24/17 09:45 Conjugated Bilirubin 0.2 mg/dL (0.0-0.5) 09/24/17 09:45 Unconjugated Bilirubin 0.3 mg/dL (0.0-1.1) 09/24/17 09:45 AST 23 IU/L (14-46) 09/24/17 09:45 ALT 26 IU/L (9-52) 09/24/17 09:45 Lactate Dehydrogenase 428 IU/L (313-618) 09/24/17 09:45 Temp Pulse Resp BP Pulse Ox 36.1 C 90 20 102/71 95 09/27/17 08:00 09/27/17 08:00 09/27/17 08:00 09/27/17 08:00 09/27/17 08:00 Uterine Position/Fundal Height: Umbilicus -1 Uterine Tone: Firm Physical Exam - Physical Exam Abdomen: non-tender (approp post op tenderness), soft, other (incision CDI) Extremities: non-tender, pedal edema (mild) Skin: normal color, warm/dry Neuro/Psych: alert, normal mood/affect
[2017-09-28] MEDS: HYDROCODONE/APAP 5/325 TAB PO PRN ×2 (02:56→09:08)
[2017-09-28] MEDS: IBUPROFEN 600 MG TAB PO PRN ×2 (02:56→09:08)
[2017-09-28 05:53] VITALS: RESP 18; O2SAT 96
[2017-09-28 09:04] VITALS: BP 139/50; PULSE 105; TEMP 98.2
[2017-09-28] MEDS: SENNOSIDES/DOCUSATE SODIUM TAB PO SCH (09:09)
[2017-09-28] MEDS: IRON POLYSAC/IRON HEME 28 MG TAB PO SCH (09:09)
--- NOTE | 2017-09-28 11:47 | OBGCSDC ---
General Delivery Information - General Info : 1 Para: 1 Abortions: 0 Type: Primary L&D Analgesia/Anesthesia Type: Epidural Admission Date: 09/23/17 Labs: Patient ABO/Rh B NEGATIVE 09/25/17 14:30 Hct 32.4 % (38.0-47.0) L 09/26/17 01:30 - Hospital Course Intrapartum: 09/24/17 07:27 Pt doing well, she reports sleeping throughout the night. She denies any pain with contractions. She denies any LOF. Reports bloody show. FOB @ BS, supportive. 09/24/17 09:26 Pt starting to be aware of the ctxns, not bothersome. Disc AROM and pt ok with it to stimulate. Disc meconium - likely due to post-dates. on 10 pit 09/24/17 19:57 Comf with JAMIE, on 16 pit for hours, unchanged cx 4/75/-1, IUPC placed easily - feels OA 09/25/17 05:02 pt has had background pain through a lot of the night - boluses help somewhat. progressed last evening to 8 cm but then no change at 3:30 am per RN. This check, cx is 9cm. Disc trouble with the ctxn pattern of being freq but inadeq strength. Will check again in 1 hour, 09/25/17 06:28 pt frustrated that cx unchanged at 9 cm, but wants to give it one more hour with position change 09/25/17 07:59 Would like to continue. (-10 cm cervix gone on the right side will rotate again. Bloody urine noted. Increasing pitocin to assist with strength of contractions. Contractions inadequete. Caput and molding noted 09/25/17 09:22 Pushing with the contractions feeling greater pressure vaginally before the vaginal exam 09/25/17 10:03 Feeling pressure with pushing and inbetween contractions. Will allow for laboring down x 1/2 hour : 09/26/17 10:06 Pt is doing well this am. She has good pain control with Toradol. She had a good breakfast and is tolerating reg diet. She is working on breast feeding and baby ate well this am. 09/27/17 12:22 Pt doing ok - no BM yet. urinating fine. bld is light. baby is latching well but stays attached for a while. amb well and no [place] in 12 hours and looks great but is reporting pain and wants dose now. anxious about constipating effect 09/28/17 11:52 S) Pt doing well, reports min pain and bleeding. she is ambulating and voiding without difficulty. She is . She desires discharge home today. O) VSS, afebrile constitutional: WNWF, A&Ox3 HEENT: normocephalic, atraumatic, supple Heart: RRR, No murmur Chest: CTA-B Abdomen: Soft, nontender Uterus: Firm at U-2 incision: C/D/I Lochia: Minimal rubra Perineum: Intact Extremities: Trace edema, and negative Lisa's sign Neuro: Grossly normal A) 32-year-old S/P primary c/s POD#3 anemia P) Discharge home today Continue cont PO iron Pelvic rest x6wks Discussed danger signs (infection, preeclampsia, depression, heavy bleeding, etc ) RTO in 4/6 weeks 09/28/17 11:54 Vaginal - Diagnosis Amniotic Fluid Color: Thick Meconium - Procedures Non-surgical Procedures: Amniotomy - Delivery Providers Surgeon: Dread Ko Crane Engineer: Carlie Saleh - Delivery Indications for Current Section: Arrest of Descent Non-surgical Procedures: Amniotomy Surgical Procedures: Unscheduled Intra-op Complications: Post Hemorrhage (EBL 1000cc) EBL: 1000cc [place] Data KINDRA: 09/18/17 Gestational Age: 41 week(s) and 3 day(s) Gonzalez Delivery Date: 09/25/17 Delivery Time: 11:50 Sex of Infant: Female Score (1 Min): 8 Score (5 Min): 9 Discharge Information - Discharge Information Prescriptions: Hydrocodone/APAP 5/325 [[place] 5/325 (*)] 1 - 2 tab PO Q4HRS PRN #30 tab PRN Reason: Pain, Moderate Ibuprofen [Motrin (*)] 600 mg PO Q6HRS PRN #30 tab PRN Reason: post , inflammation Iron Polysacch/Iron Heme Polyp [Bifera] 28 mg PO DAILY #30 tab Condition: Good Instruction/Follow Up: Two Weeks, Four Weeks, Six Weeks
== END 2017-09-28 12:01 | disposition home or self-care (01) | DRG 765 ==
LOC: FLD 13:10 → OBSVTOIN 14:37 → FOB 09-25 16:27
PROVIDERS: ADMIT Advanced Practice Midwife; ATTEND Advanced Practice Midwife
DX: O62.1 Secondary uterine inertia (principal); O41.1230 Chorioamnionitis, third trimester, not applicable or unspecified; O72.2 Delayed and secondary postpartum hemorrhage; Z37.0 Single live birth; O36.8130 Decreased fetal movements, third trimester, not applicable or unspecified; Z3A.41 41 weeks gestation of pregnancy; O66.5 Attempted application of vacuum extractor and forceps; D64.9 Anemia, unspecified; O99.02 Anemia complicating childbirth
CPT/HCPCS: J0290; J1100; J1885; J2274; J2370; J2405; J2590; J2704; J3010; J3105

== ENCOUNTER → 2018-09-07 | Outpatient (CLI) | payer OTHER | LOC: FIMAGING 13:29 | PROVIDERS: ATTEND Family Medicine | DX: N60.01 Solitary cyst of right breast (principal) ==